=== PATIENT | male | born 1955 | race Caucasian/White ===

== ENCOUNTER 2017-03-27 01:03 | Inpatient (IN) | payer OTHER, MEDICARE, MEDICAID ==
[2017-03-27] VITALS (9 sets, daily range): BP systolic 109–135; BP diastolic 59–68; PULSE 64–88; RESP 16–18; TEMP 96.5–98.1; O2SAT 96–100
[~2017-03-27] VITALS: Ht 165.1 cm; Wt 76.7 kg
[2017-03-27] MEDS ORDERED: IOHEXOL 350 MG/ML 10 ML VIAL (for RAD DIAG) IVCONTRAST ONE (01:19)
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
[2017-03-27 01:25] LABS: I-STAT POTASSIUM 3.5 MMOL/L (3.5-4.9)
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
[2017-03-27 01:33] LABS: AUTOMATED NEUTROPHIL # 5.6 TH/MM3 (1.8-7.7); BASOPHIL % 0.2 % (0.0-2.0); EOSINOPHIL # 0.1 TH/MM3 (0-0.4); EOSINOPHIL % 1.1 % (0.0-4.0); HEMATOCRIT 43.8 % (39.0-51.0); HEMO FLAGS DIFF FINAL; LYMPH % 31.3 % (9.0-44.0); MEAN CELL VOLUME 95.3 FL (80.0-100.0); MEAN CORPUSCULAR HEMOGLOBIN 32.8 PG (27.0-34.0); MEAN CORPUSCULAR HGB CONC 34.4 % (32.0-36.0); MONO % 8.1 % (0.0-8.0); NEUT % 59.3 % (16.0-70.0); PLATELET COUNT 216 TH/MM3 (150-450); RED BLOOD COUNT 4.59 MIL/MM3 (4.50-5.90); RED CELL DISTRIBUTION WIDTH 13.5 % (11.6-17.2); WHITE BLOOD COUNT 9.4 TH/MM3 (4.0-11.0)
[2017-03-27] MEDS ORDERED: XARE15TA PO (01:40)
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
[2017-03-27] MEDS ORDERED: ACETAMINOPHEN/HYDROcodone 325 MG/5 MG TAB PO PRN (01:45)
[2017-03-27] MEDS ORDERED: ONDANSETRON HCL 4 MG/2 ML VIAL IV PRN (01:45)
[2017-03-27] MEDS ORDERED: ONDANSETRON HCL 4 MG/2 ML VIAL IV ONE (01:45)
[2017-03-27] MEDS ORDERED: SODIUM CHLORIDE 0.9% FLUSH 10 ML FLUSH IV FLUSH PRN (01:45)
[2017-03-27] MEDS ORDERED: ENALAPRILAT 1.25 MG/ML VIAL IV PRN (01:45)
[2017-03-27] MEDS ORDERED: MORPHINE SULFATE 4 MG/ML INJ IV ONE (01:45)
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
[2017-03-27] MEDS: PANTOPRAZOLE SODIUM 40 MG VIAL IVP SCH (01:48)
[2017-03-27] MEDS: SODIUM CHLOR 0.9% 1000 ML INJ 1,000 ML IV SCH ×3 (01:48→21:32)
[2017-03-27 01:53] LABS: APTT (PATIENT) 26.7 SEC (24.3-30.1); INTERNATIONAL NORMALIZED RATIO 0.9 RATIO; PROTHROMBIN TIME - PATIENT 10.3 SEC (9.8-11.6)
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
[2017-03-27] MEDS ORDERED: ATOR20TA15 PO (02:24)
[2017-03-27] MEDS ORDERED: METF500T PO (02:24)
[2017-03-27] MEDS ORDERED: LISI-519 PO (02:24)
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
[2017-03-27] MEDS: HYDROmorphone HCL PF 1 MG/ML VIAL IVP PRN ×2 (04:10→08:35)
[2017-03-27 06:17] LABS: AUTOMATED NEUTROPHIL # 6.7 TH/MM3 (1.8-7.7); BASOPHIL % 0.2 % (0.0-2.0); EOSINOPHIL # 0.2 TH/MM3 (0-0.4); EOSINOPHIL % 1.6 % (0.0-4.0); HEMATOCRIT 39.7 % (39.0-51.0); HEMO FLAGS DIFF FINAL; LYMPH % 26.5 % (9.0-44.0); LYMPHOCYTE # 2.7 TH/MM3 (1.0-4.8); MEAN CELL VOLUME 96.1 FL (80.0-100.0); MEAN CORPUSCULAR HEMOGLOBIN 32.6 PG (27.0-34.0); MEAN CORPUSCULAR HGB CONC 33.9 % (32.0-36.0); MONO % 6.8 % (0.0-8.0); NEUT % 64.9 % (16.0-70.0); PLATELET COUNT 202 TH/MM3 (150-450); RED BLOOD COUNT 4.13 MIL/MM3 (4.50-5.90); RED CELL DISTRIBUTION WIDTH 13.3 % (11.6-17.2); WHITE BLOOD COUNT 10.4 TH/MM3 (4.0-11.0)
[2017-03-27 06:45] LABS: ANION GAP 6 MEQ/L (5-15); AST (GOT) 16 U/L (15-37); BICARBONATE 27.8 MEQ/L (21.0-32.0); BLOOD UREA NITROGEN 17 MG/DL (7-18); CHLORIDE 107 MEQ/L (98-107); GLOMERULAR FILTRATION RATE 82 ML/MIN (>89); POTASSIUM 3.8 MEQ/L (3.5-5.1); SODIUM (NA) 141 MEQ/L (136-145)
[2017-03-27 06:46] LABS: ALT (GPT) 20 U/L (12-78)
[2017-03-27 06:48] LABS: ALKALINE PHOSPHATASE 71 U/L (45-117); TOTAL BILIRUBIN ADULT 0.4 MG/DL (0.2-1.0)
[2017-03-27] MEDS: DOCUSATE SODIUM 100 MG CAP PO SCH ×2 (09:00→21:03)
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
[2017-03-27] MEDS ORDERED: DEXTROSE 50% IN WATER 50 ML VIAL(D50) IV PRN (14:15)
[2017-03-27] MEDS ORDERED: GLUCAGON 1 MG/ML VIAL OTHER PRN (14:15)
[2017-03-27] MEDS: ACETAMINOPHEN/HYDROcodone 325 MG/5 MG TAB PO PRN ×2 (15:57→21:03)
[2017-03-27] MEDS: INSULIN NovoLIN REGULAR SUPPLEMENTAL SCALE SQ SCH ×2 (16:00→21:00)
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
[2017-03-27] MEDS: ENOXAPARIN SODIUM 30 MG/0.3 ML SYRINGE SQ SCH (19:32)
[2017-03-27] MEDS: ATORVASTATIN 20 MG TAB PO SCH (21:03)
[2017-03-28 00:02] VITALS: BP 116/61; PULSE 63; RESP 17; TEMP 96.8; O2SAT 97
[2017-03-28] MEDS: PANTOPRAZOLE SODIUM 40 MG VIAL IVP SCH (01:57)
[2017-03-28] MEDS: ACETAMINOPHEN/HYDROcodone 325 MG/5 MG TAB PO PRN ×4 (01:58→21:49)
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
[2017-03-28] MEDS: ENOXAPARIN SODIUM 30 MG/0.3 ML SYRINGE SQ SCH ×2 (06:16→16:37)
[2017-03-28] MEDS: INSULIN NovoLIN REGULAR SUPPLEMENTAL SCALE SQ SCH ×4 (07:00→21:00)
[2017-03-28] MEDS: SODIUM CHLOR 0.9% 1000 ML INJ 1,000 ML IV SCH ×2 (07:32→17:32)
[2017-03-28 08:00] VITALS: BP 151/68; PULSE 67; RESP 18; TEMP 95.6; O2SAT 97
[2017-03-28] MEDS ORDERED: PNEUMOCOCCAL POLYVALENT INJ 25 MCG/0.5 ML SYR IM ONE (09:00)
[2017-03-28] MEDS: DOCUSATE SODIUM 100 MG CAP PO SCH ×2 (10:30→21:49)
[2017-03-28] MEDS: metFORMIN HCL 500 MG TAB PO SCH (10:30)
[2017-03-28] MEDS: LISINOPRIL 5 MG TAB PO SCH (10:30)
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
[2017-03-28 12:00] VITALS: BP 142/66; PULSE 58; RESP 16; TEMP 97.6; O2SAT 98
[2017-03-28] MEDS ORDERED: LACTULOSE SYRUP 20 GM/30 ML CUP PO PRN (13:45)
--- NOTE | 2017-03-28 13:49 | HHI.PR ---
Subjective Subjective Notes Complains of LLE numbness Pain controlled Objective Vitals/I&O Vital Signs Date Time Temp Pulse Resp B/P (MAP) Pulse Ox O2 Delivery O2 Flow Rate FiO2 03/28/17 08:00 95.6 67 18 151/68 (95) 97 03/27/17 09:55 21 03/27/17 02:31 Nasal Cannula 2 Labs Last Impressions Thoracic Spine CT 03/27/17107 Signed Impressions: Service Date/Time: Monday, March 27, 2017 01:19 - CONCLUSION: 1. Mild dextroscoliosis of the dorsal spine. 2. No fracture. Spinal canal is adequate throughout. Elias Alex MD Lumbar Spine CT 03/27/17107 Signed Impressions: Service Date/Time: Monday, March 27, 2017 01:19 - CONCLUSION: 1. No acute fracture. Spinal canal and neural foramina appear to be adequate throughout. 2. Bridging anterior osteophytes in the SI joints. Elias Alex MD Head CT 03/27/17107 Signed Impressions: Service Date/Time: Monday, March 27, 2017 01:14 - CONCLUSION: Negative exam. No acute intracranial process, trauma or fracture. Elias Alex MD Chest X-Ray 03/27/17107 Signed Impressions: Service Date/Time: Monday, March 27, 2017 00:58 - CONCLUSION: No acute cardiopulmonary process/trauma. Elias Alex MD Chest CT 03/27/17107 Signed Impressions: Service Date/Time: Monday, March 27, 2017 01:19 - CONCLUSION: 1. Minimal dependent atelectatic changes in the lung bases. 2. Otherwise negative with no acute thoracic trauma/fracture. Elias Alex MD Cervical Spine CT 03/27/17107 Signed Impressions: Service Date/Time: Monday, March 27, 2017 01:14 - CONCLUSION: 1. Mild multilevel degenerative disc disease with marginal spurring most prominent at C5-6. 2. Broad-based, 5 mm disc bulge at C4-5 encroaches on the anterior epidural space and displaces the cord posteriorly. Spinal canal and neural foramina are patent at all remaining cervical levels. Elias Alex MD Abdomen/Pelvis CT 03/27/17107 Signed Impressions: Service Date/Time: Monday, March 27, 2017 01:19 - CONCLUSION: 1. No acute intraperitoneal or pelvic process, trauma or fracture. 2. Benign-appearing 2.2 cm cyst medially in the mid pole of the right kidney, bridging anterior osteophytes at the SI joints and minimal bibasilar atelectatic changes. Elias Alex MD Thoracic Spine MRI 03/27/17 0000 Signed Impressions: Service Date/Time: Monday, March 27, 2017 02:58 - CONCLUSION: Negative exam. Spinal canal is patent throughout. Elias Alex MD Pelvis X-Ray 03/27/17 Signed Impressions: Service Date/Time: Monday, March 27, 2017 00:58 - CONCLUSION: No fracture. Elias Alex MD Lumbar Spine MRI 03/27/17 Signed Impressions: Service Date/Time: Monday, March 27, 2017 02:58 - CONCLUSION: 1. Epidural lipomatosis in the lower lumbar region extending into the sacral canal. 2. Otherwise, spinal canal and neural foramina are patent throughout without nerve root compromise to explain current clinical symptoms.. Elias Alex MD Cervical Spine MRI 03/27/17 0000 Signed Impressions: Service Date/Time: Monday, March 27, 2017 02:58 - CONCLUSION: 1. 4 mm central disc protrusion at C4-5 and a broad-based disc complex at C5-6. Both encroach on the intervertebral space and displaces the cord posteriorly without cord compromise. 2. Spinal canal and neural foramina are adequate throughout. Again , no cord or nerve root compromise to explain current clinical symptoms. Elias Alex MD Radiology Last Impressions Thoracic Spine CT 03/27/178 Signed Impressions: Service Date/Time: Monday, March 27, 2017 01:19 - CONCLUSION: 1. Mild dextroscoliosis of the dorsal spine. 2. No fracture. Spinal canal is adequate throughout. Elias Alex MD Lumbar Spine CT 03/27/178 Signed Impressions: Service Date/Time: Monday, March 27, 2017 01:19 - CONCLUSION: 1. No acute fracture. Spinal canal and neural foramina appear to be adequate throughout. 2. Bridging anterior osteophytes in the SI joints. Elias Alex MD Head CT 03/27/17107 Signed Impressions: Service Date/Time: Monday, March 27, 2017 01:14 - CONCLUSION: Negative exam. No acute intracranial process, trauma or fracture. Elias Alex MD Chest X-Ray 03/27/17107 Signed Impressions: Service Date/Time: Monday, March 27, 2017 00:58 - CONCLUSION: No acute cardiopulmonary process/trauma. Elias Alex MD Chest CT 03/27/17107 Signed Impressions: Service Date/Time: Monday, March 27, 2017 01:19 - CONCLUSION: 1. Minimal dependent atelectatic changes in the lung bases. 2. Otherwise negative with no acute thoracic trauma/fracture. Elias Alex MD Cervical Spine CT 03/27/17107 Signed Impressions: Service Date/Time: Monday, March 27, 2017 01:14 - CONCLUSION: 1. Mild multilevel degenerative disc disease with marginal spurring most prominent at C5-6. 2. Broad-based, 5 mm disc bulge at C4-5 encroaches on the anterior epidural space and displaces the cord posteriorly. Spinal canal and neural foramina are patent at all remaining cervical levels. Elias Alex MD Abdomen/Pelvis CT 03/27/17107 Signed Impressions: Service Date/Time: Monday, March 27, 2017 01:19 - CONCLUSION: 1. No acute intraperitoneal or pelvic process, trauma or fracture. 2. Benign-appearing 2.2 cm cyst medially in the mid pole of the right kidney, bridging anterior osteophytes at the SI joints and minimal bibasilar atelectatic changes. Elias Alex MD Thoracic Spine MRI 03/27/17 Signed Impressions: Service Date/Time: Monday, March 27, 2017 02:58 - CONCLUSION: Negative exam. Spinal canal is patent throughout. Elias Alex MD Pelvis X-Ray 03/27/17 0000 Signed Impressions: Service Date/Time: Monday, March 27, 2017 00:58 - CONCLUSION: No fracture. Elias Alex MD Lumbar Spine MRI 03/27/17 0000 Signed Impressions: Service Date/Time: Monday, March 27, 2017 02:58 - CONCLUSION: 1. Epidural lipomatosis in the lower lumbar region extending into the sacral canal. 2. Otherwise, spinal canal and neural foramina are patent throughout without nerve root compromise to explain current clinical symptoms.. Elias Alex MD Cervical Spine MRI 03/27/17 0000 Signed Impressions: Service Date/Time: Monday, March 27, 2017 02:58 - CONCLUSION: 1. 4 mm central disc protrusion at C4-5 and a broad-based disc complex at C5-6. Both encroach on the intervertebral space and displaces the cord posteriorly without cord compromise. 2. Spinal canal and neural foramina are adequate throughout. Again , no cord or nerve root compromise to explain current clinical symptoms. Elias Alex MD Narrative Exam GENERAL: 61 year old well-nourished, well developed male OOB in chair cervical collar in place. SKIN: Warm and dry. HEAD: Normocephalic. ENT: No nasal bleeding or discharge. Mucous membranes pink and moist. NECK: Trachea midline. No JVD. [place]-J collar in place. CARDIOVASCULAR: Regular rate and rhythm. RESPIRATORY: No accessory muscle use. Lungs clear to auscultation. Breath sounds equal bilaterally. GASTROINTESTINAL: Abdomen soft, non-tender, nondistended. + BS. MUSCULOSKELETAL: Extremities without cyanosis, or edema. MAEW. NEUROLOGICAL: Awake and alert. Normal speech. A/P Assessment and Plan INJURIES: C4-5 disc bulge (5mm) displaces cord posteriorly (no cord compromise) Aspiration PMHx: DM, HTN, cardiac disorders, Chronic neck pain Diet: 1800 ADA Pulm: IS Pain: [place], Dilaudid. Activity: OOB. PT and OT ordered. Bowel: Lilo-Colace. Lactulose PRN. DVT: SCDs, Lovenox 30 BID C4-5 disc bulge Neurosurgery consulted Nonsurgical management Maintain cervical collar OOB- PT/OT Pain control Aspiration Supportive care Pulmonary toileting OOB CXR pending Plan of care discussed patient at bedside. Case management consulted to assist with discharge planning. Attending Statement patient seen at bedside c collar per nsg unchanged neuro exam Attestation The exam, history, and the medical decision-making described in the above note were completed with the assistance of the mid-level provider. I reviewed and agree with the findings presented. I attest that I had a [id number] encounter with the patient on the same day, and personally performed and documented my assessment and findings in the medical record. Tristan Hernández Mar 28, 2017 13:49 Juliocesar Marlow MD Mar 31, 2017 21:25
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
[2017-03-28 16:00] VITALS: BP 131/64; PULSE 67; RESP 18; TEMP 97.2; O2SAT 98
[2017-03-28] MEDS ORDERED: WALKER WHEELS/F1 MIS (16:00)
[2017-03-28] MEDS: DOCUSATE SODIUM 50 MG/SENNA 8.6 MG TAB PO SCH ×2 (16:03→21:49)
[2017-03-28 20:20] VITALS: BP 145/70; PULSE 67; RESP 17; TEMP 98.4; O2SAT 97
[2017-03-28] MEDS: ATORVASTATIN 20 MG TAB PO SCH (21:49)
[2017-03-29 00:03] VITALS: BP 127/67; PULSE 67; RESP 16; TEMP 97.4; O2SAT 96
[2017-03-29] MEDS: PANTOPRAZOLE SODIUM 40 MG VIAL IVP SCH (02:07)
[2017-03-29] MEDS: SODIUM CHLOR 0.9% 1000 ML INJ 1,000 ML IV SCH ×2 (02:53→13:32)
[2017-03-29] MEDS: ENOXAPARIN SODIUM 30 MG/0.3 ML SYRINGE SQ SCH (06:10)
[2017-03-29] MEDS: ACETAMINOPHEN/HYDROcodone 325 MG/5 MG TAB PO PRN (06:10)
[2017-03-29] MEDS: INSULIN NovoLIN REGULAR SUPPLEMENTAL SCALE SQ SCH ×2 (06:38→11:00)
[2017-03-29 08:00] VITALS: BP 127/64; PULSE 64; RESP 18; TEMP 97.8; O2SAT 96
[2017-03-29] MEDS: DOCUSATE SODIUM 50 MG/SENNA 8.6 MG TAB PO SCH (09:09)
[2017-03-29] MEDS: metFORMIN HCL 500 MG TAB PO SCH (09:09)
[2017-03-29] MEDS: LISINOPRIL 5 MG TAB PO SCH (09:09)
[2017-03-29] MEDS: DOCUSATE SODIUM 100 MG CAP PO SCH (09:09)
[2017-03-29] MEDS ORDERED: PERC5TAB12 PO (11:25)
[2017-03-29 12:00] VITALS: BP 128/71; PULSE 64; RESP 18; TEMP 96; O2SAT 97
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
== END 2017-03-29 16:14 | disposition home or self-care (01) | DRG 552 ==
LOC: NEPI 01:03 → NEDA 02:06 → EDBD 02:06 → N06A 03:43
PROVIDERS: ADMIT Surgery; ATTEND Surgery
DX: M54.2 Cervicalgia (principal); I10 Essential (primary) hypertension; M54.5 Low back pain; M50.321 Other cervical disc degeneration at C4-C5 level; E11.9 Type 2 diabetes mellitus without complications; E78.5 Hyperlipidemia, unspecified; Z79.84 Long term (current) use of oral hypoglycemic drugs; R20.2 Paresthesia of skin; G89.29 Other chronic pain; E88.2 Lipomatosis, not elsewhere classified; M48.06 Spinal stenosis, lumbar region; S06.0X0A Concussion without loss of consciousness, initial encounter; V43.52XA Car driver injured in collision with other type car in traffic accident, initial encounter; Y92.410 Unspecified street and highway as the place of occurrence of the external cause
CPT/HCPCS: 70450; 71010; 71260; 72125; 72128; 72131; 72141; 72146; 72148; 72170; 74177; 80053; 82435; 82565; 82947; 82948; 84132; 84295; 84520; 85025; 85610; 85730; 86850; 86900; 86901; 90471; 90732; 94150; 99291; A0431-QM-SH; A0436-QM-SH; C9113; G0009; G0390; J1170; J1650; J2405; J7030; L0172; Q9967